=== PATIENT | male | born 1965 | race Caucasian/White ===

== ENCOUNTER → 2016-08-19 | Outpatient (CLI) | payer OTHER | LOC: RAD 08:44 | DX: R10.12 Left upper quadrant pain (principal) ==

== ENCOUNTER 2017-10-10 14:30 | Outpatient (RCR) | payer OTHER | END 2017-10-19 | disposition home or self-care (01) | LOC: PT | DX: Z47.1 Aftercare following joint replacement surgery (principal); Z96.652 Presence of left artificial knee joint | CPT/HCPCS: G8978-GP; G8979-GP ==

== ENCOUNTER 2018-10-09 13:30 | Outpatient (RCR) | payer OTHER | END 2018-10-11 | disposition home or self-care (01) | LOC: PT | DX: Z47.1 Aftercare following joint replacement surgery (principal); Z96.651 Presence of right artificial knee joint ==